=== PATIENT | female | born 1955 | race Caucasian/White ===

== ENCOUNTER 2020-05-15 15:48 | Inpatient (IN) | payer OTHER, SELFPAY ==
[~2020-05-15] VITALS: Ht 154.9 cm; Wt 80.7 kg
--- NOTE | 2020-05-15 15:49 | NUR ---
PATIENT BIBA BLS TAKEN TO BED 12
[2020-05-15 15:50] VITALS: BP 102/61
[2020-05-15] MEDS ORDERED: MORPHINE SULFATE 2 MG/ML SYR IM ONE (16:00)
--- NOTE | 2020-05-15 16:00 | NUR ---
PT BIBA FROM HOME C/O RIGHT ANKLE PAIN W/ EDEMA AND SLIGHT DEFORMITY S/P FALL IN HER BATHROOM. PT STATES SHE FELT DIZZY, LOST HER BALANCE, AND FELL. OTHERWISE, DENIES FEVER, COUGH, SOB, CHEST PAIN, N/V/D, OR SICK CONTACT. PT DENIES DIZZINESS AT THIS MOMENT. PT DENIES HEAD INJURY OR LOC. DENIES PMH.
--- NOTE | 2020-05-15 16:34 | NUR ---
X-Ray at bedside.
[2020-05-15] MEDS ORDERED: LIDOCAINE 2% 1000 MG/50 ML VIAL INJ ONE (16:40)
--- NOTE | 2020-05-15 18:06 | NUR ---
SPOKE TO PT'S SON VIA PHONE # [phone] FOR MEDICAL UPDATES.
--- NOTE | 2020-05-15 18:06 | NUR ---
Attempted instruction on proper crutch use, patient unable to safely return demonstration. Dr. Valenzuela made aware
--- NOTE | 2020-05-15 18:16 | NUR ---
CALLED PT'S SON VIA PHONE # [phone] FOR LETTING HIM KNOW HIS MOTHER WILL BE ADMITTED TO THE HOSPITAL WITHOUT NO ANSWER. LEFT MESSAGE FOR HIM TO CALL BACK.
[2020-05-15] MEDS ORDERED: NACL 0.9% 1,000 ML IV ONE (18:20)
[2020-05-15] MEDS ORDERED: ZOLPIDEM 5 MG TAB PO PRN (18:30)
[2020-05-15] MEDS ORDERED: MAGNESIUM OXIDE 400 MG TAB PO PRN (18:30)
[2020-05-15] MEDS ORDERED: KCL 20 MEQ/WATER INJ PREMIX 200 ML IV PRN (18:30)
[2020-05-15] MEDS ORDERED: MORPHINE SULFATE 4 MG/ML SYR IVP PRN (18:30)
[2020-05-15] MEDS ORDERED: MAG SULF 2000 MG/WATER PREMIX 50 ML IV PRN (18:30)
[2020-05-15] MEDS ORDERED: ONDANSETRON 4 MG/2 ML VIAL IVP PRN (18:30)
[2020-05-15] MEDS ORDERED: IBUPROFEN 400 MG TAB PO PRN (18:30)
[2020-05-15] MEDS ORDERED: ACETAMINOPHEN 325 MG TAB PO PRN (18:30)
[2020-05-15] MEDS ORDERED: POTASSIUM CHLORIDE 10 MEQ TABER PO PRN (18:30)
--- NOTE | 2020-05-15 18:45 | NUR ---
PT HAS BEEN TAKING TO CT VIA [facility].
[2020-05-15] MEDS: NACL 0.9% 1,000 ML IV SCH (19:00)
--- NOTE | 2020-05-15 19:30 | NUR ---
RECEIVED REPORT FROM JAN PAL FOR CONTINUITY OF CARE.
[2020-05-15 19:38] LABS: BASOPHILS % (AUTO) 0.2 % (0.0-2.0); EOSINOPHILS % (AUTO) 0.1 % (0.0-4.0); HEMATOCRIT 42.9 % (36-48); HEMOGLOBIN 14.3 g/dL (12.0-16.0); LYMPHOCYTES # (AUTO) 1.1 K/uL (2.5-16.5); LYMPHOCYTES % (AUTO) 7.4 % (20.5-51.1); MEAN CORPUSCULAR HEMOGLOBIN 32 pg (27-31); MEAN CORPUSCULAR HGB CONC 33 g/dL (33-37); MEAN CORPUSCULAR VOLUME 96.7 fL (80-94); MONOCYTES # (AUTO) 0.5 K/uL (0.8-1.0); MONOCYTES % (AUTO) 3.2 % (1.7-9.3); NEUTROPHILS # (AUTO) 13.5 K/uL (1.8-7.7); NEUTROPHILS % (AUTO) 89.1 % (42.2-75.2); PLATELET COUNT (AUTO) 219 K/uL (140-450); RED BLOOD CELL COUNT(AUTO) 4.43 MIL/uL (4.20-5.40); RED CELL DISTRIBUTION WIDTH 15.3 % (11.6-13.7); WHITE BLOOD COUNT (AUTO) 15.1 K/uL (4.8-10.8)
[2020-05-15 19:41] LABS: CARBON DIOXIDE 24.2 mmol/L (21-32)
[2020-05-15 19:53] LABS: ALBUMIN 4.3 g/dL (3.4-5.0); CREATININE 1.5 mg/dL (0.6-1.3); TOTAL BILIRUBIN 0.4 mg/dL (0.0-1.0)
[2020-05-15 19:56] LABS: PROTHROMBIN TIME 10.4 secs (10.8-13.4)
[2020-05-15 19:57] LABS: ANION GAP 21.8 (8-16)
--- NOTE | 2020-05-15 20:00 | NUR ---
PT LAYING IN BED COMFORTABLE IN SEMI FOWLERS POSITION IN NO ACUTE DISTRESS NOTED. BREATHING EVEN AND UNLABORED EVIDENCE BY RISE AND FALL OF CHEST WALL. BED LOCKED AND IN LOWEST POSITION. IVF OF 0.9% RUNNING AT THIS TIME. ALL NEEDS MEET PRIOR TO EXIT. WILL CONITINUE TO MONITOR.
--- NOTE | 2020-05-15 22:54 | NUR ---
PT LAYING IN BED COMFORTABLE IN SEMI FOWLERS POSITION IN NO ACUTE DISTRESS NOTED. BREATHING EVEN AND UNLABORED EVIDENCE BY RISE AND FALL OF CHEST WALL. BED LOCKED AND IN LOWEST POSITION. ALL NEEDS MEET PRIOR TO EXIT. WILL CONITINUE TO MONITOR.
--- NOTE | 2020-05-15 23:25 | NUR ---
RECEIVED PHONE CALL PER [facility] THAT THEY REQUIRE VERIFICATION FOR MOTRIN DUE TO PT'S ALLERGY TO ASPIRIN. PAGED FOR DR. DÍAZ AT [phone] PER [employer] SQL DEVELOPER THEY WILL PAGE DOC.
--- NOTE | 2020-05-15 23:28 | NUR ---
PER DR. VAZQUEZ TO KEEP R ANKLE ELEVATED ABOVE THE LEVEL OF THE HEART FOR SURGERY. WILL ELEVATED LEG INSTRUCTED AND WILL ENDORSE INSTRUCTIONS TO AM NURSE.
--- NOTE | 2020-05-15 23:33 | NUR ---
RECEIVED PHONE CALL FROM DR. DÍAZ AND STATES "YES MOTRIN IS OKAY AT THIS TIME". NOTIFIED [facility] & SPOKE WITH MAURA.
--- NOTE | 2020-05-16 00:34 | NUR ---
ELEVATED PT'S EXTREMITY TOLERATED WELL. NO C/O PAIN OR DISCOMFORT AT THIS TIME WILL CONTINUE TO MONITOR.
[2020-05-16] MEDS: HYDROcodone/APAP 5/325 MG 1 TAB TAB PO PRN (01:28)
--- NOTE | 2020-05-16 01:29 | NUR ---
PT C/O PAIN & DISCOMFORT TO R ANKLE THROMBBING 09/29. PT WAS GIVEN NORCO FOR PAIN WILL CONTINUE TO MONITOR FOR EFFECTIVENESS OF PAIN RELIEF.
--- NOTE | 2020-05-16 02:30 | NUR ---
PT VERBALIZES A DECREASE IN PAIN LEVEL FROM 5/10 TO 0/10. SHE IS LAYING IN BED IN NO ACUTE DISTRESS NOTED. BREATHING EVEN AND UNLABORED EVIDENCE BY RISE AND FALL OF CHEST WALL. CALL LIGHT WITHIN REACH AND ALL NEEDS MEET PRIOR TO EXIT.
[2020-05-16] MEDS ORDERED: ATEN100T6 PO (03:32)
[2020-05-16] MEDS ORDERED: ORE25 PO (03:32)
[2020-05-16] MEDS ORDERED: BENA40TA PO (03:32)
[2020-05-16] MEDS ORDERED: SUL500 PO (03:32)
--- NOTE | 2020-05-16 04:34 | NUR ---
Patient will be admitted to care of DR. DÍAZ. Admited to MED/SURG. Will go to room 126A. Belongings list completed. Report to GIVEN TO KEERTHI PAL. ALL COVID PRECAUTIONS IN PLACE. PT WEARING A MASK. PT TAKEN VIA GURNEY BY RHONDA GUALLPA. PT LEFT WITH STABLE VSS.
[2020-05-16 04:55] VITALS: BP 136/78
--- NOTE | 2020-05-16 04:55 | NUR ---
RECEIVED PT AAOX4 / PRACHI FROM ER , IV SITE INTACT AND PATENT . ADMISSION ASSESSMENT - DONE . W/ BANDAGE DRESSING ON R FOOT EXTENDED TO LEG - WILL ELEVATE THE EFFECTED FOOT ORDERED . NPO - RE INSTRUCTED . SAFETY MEASURES IN PLACE - CALL LIGHT WITHIN REACH . POC DISCUSSED AND VERBALIZE UNDERSTANDING . WILL CONT. TO MONITOR
[2020-05-16] MEDS: NACL 0.9% 1,000 ML IV SCH ×2 (05:26→20:59)
--- NOTE | 2020-05-16 06:00 | NUR ---
MADE ROUNDS , NO COMPLAIN MADE AT THIS TIME . CALL LIGHT WITHIN REACH
--- NOTE | 2020-05-16 06:20 | NUR ---
PATIENT HAS BEEN SCREENED AND CATEGORIZED LOW NUTRITION RISK. PATIENT WILL BE SEEN WITHIN 7 DAYS OF ADMISSION. 05/23/19 ТАТЬЯНА SALEH MS, RDN Addendum: 05/16/20 at [address] Incorrect year previously entered; correction: PATIENT HAS BEEN SCREENED AND CATEGORIZED LOW NUTRITION RISK. PATIENT WILL BE SEEN WITHIN 7 DAYS OF ADMISSION. 05/23/20 ТАТЬЯНА SALEH MS, RDN
--- NOTE | 2020-05-16 07:53 | NUR ---
ENDORSE TO AM SHIFT - PT - STABLE - ENDORSE PT IS FOR OR TODAY AT 13OO , HAVE TO SIGN THE CONSENT NO CONSENT YET FOR OR. I ENDORSE TO AM SHIFT PT . HAS ONGOING FIRST BAG OF [place] PALMER . PT IS NPO
--- NOTE | 2020-05-16 07:53 | NUR ---
RECEIVED PATIENT IN BED RESTING COMFORTABLY, PRESENTS CALM AND COOPERATIVE, ABLE TO EXPRESS NEEDS. NO C/O PAIN OR DISCOMFORT. RESPIRATIONS NON-LABORED. SKIN IS CLEAN, WARM AND DRY TO TOUCH. IV ACCESS IS PATENT DRY AND INTACT. BED IS LOCKED IN LOWEST POSITION, CALL LIGHT IN REACH. NURSE WILL CONTINUE TO MONITOR FOR CHANGES IN STATUS.
[2020-05-16] MEDS: DOCUSATE SODIUM 100 MG GELCAP PO SCH (09:24)
[2020-05-16 09:47] LABS: BASOPHILS % (AUTO) 0.4 % (0.0-2.0); EOSINOPHILS % (AUTO) 0.3 % (0.0-4.0); HEMATOCRIT 37.4 % (36-48); HEMOGLOBIN 12.6 g/dL (12.0-16.0); LYMPHOCYTES # (AUTO) 1.9 K/uL (2.5-16.5); LYMPHOCYTES % (AUTO) 17.5 % (20.5-51.1); MEAN CORPUSCULAR HEMOGLOBIN 32 pg (27-31); MEAN CORPUSCULAR HGB CONC 34 g/dL (33-37); MEAN CORPUSCULAR VOLUME 95.6 fL (80-94); MONOCYTES # (AUTO) 0.9 K/uL (0.8-1.0); MONOCYTES % (AUTO) 8.4 % (1.7-9.3); NEUTROPHILS # (AUTO) 7.9 K/uL (1.8-7.7); NEUTROPHILS % (AUTO) 73.4 % (42.2-75.2); PLATELET COUNT (AUTO) 207 K/uL (140-450); RED BLOOD CELL COUNT(AUTO) 3.91 MIL/uL (4.20-5.40); RED CELL DISTRIBUTION WIDTH 15.4 % (11.6-13.7); WHITE BLOOD COUNT (AUTO) 10.8 K/uL (4.8-10.8)
[2020-05-16 10:09] LABS: ANION GAP 17.8 (8-16); CARBON DIOXIDE 27.8 mmol/L (21-32); CREATININE 1.1 mg/dL (0.6-1.3); POTASSIUM 3.6 mmol/L (3.5-5.1)
--- NOTE | 2020-05-16 11:54 | NUR ---
PATIENT RESTING COMFORTABLY, NO C/O PAIN OR DISCOMFORT. RESPIRATIONS ARE NON-LABORED. SKIN IS CLEAN, WARM AND DRY TO TOUCH. IV ACCESS IS PATENT, DRY AND INTACT. BED IS LOCKED IN LOWEST POSITION, CALL LIGHT IN REACH. NURSE WILL CONTINUE TO MONITOR FOR CHANGE IN STATUS. CONSENT FOR PROCEDURE OBTAINED, PLACED IN CHART.
--- NOTE | 2020-05-16 13:58 | NUR ---
PATIENT OFF UNIT FOR PROCEDURE.
[2020-05-16] MEDS ORDERED: SEVOFLURANE 250 ML BTL INH ONE (14:30)
[2020-05-16] MEDS ORDERED: MIDAZOLAM 2 MG/2 ML VIAL ONE (14:30)
[2020-05-16] MEDS ORDERED: ONDANSETRON 4 MG/2 ML VIAL ONE (14:30)
[2020-05-16] MEDS ORDERED: PROPOFOL 200 MG/20 ML VIAL IV ONE (14:30)
[2020-05-16] MEDS ORDERED: fentaNYL citrate 0.05 MG/ML VIAL ONE (14:30)
[2020-05-16] MEDS ORDERED: DEXAMETHASONE 4 MG/ML VIAL ONE (14:30)
[2020-05-16] MEDS ORDERED: LABETALOL 100 MG/20 ML VIAL ONE (14:30)
[2020-05-16] MEDS ORDERED: BUPIVACAINE-MPF/EPI 0.25% 10 ML VIAL INJ ONE (15:13)
[2020-05-16] MEDS ORDERED: HYDROmorphone 1 MG/ML AMP IVP PRN (17:55)
[2020-05-16] MEDS ORDERED: diphenhydrAMINE 50 MG/ML VIAL IVP PRN (17:55)
[2020-05-16] MEDS: LACTATED RINGERS 1,000 ML IV SCH ×2 (17:55→19:51)
[2020-05-16] MEDS ORDERED: MEPERIDINE 25 MG/ML SYR IVP PRN (17:55)
[2020-05-16] MEDS ORDERED: ONDANSETRON 4 MG/2 ML VIAL IVP PRN (17:55)
--- NOTE | 2020-05-16 19:13 | NUR ---
patient returned from procedure. Patient resting comfortably, no c/o pain or discomfort. Respirations non-labored, skin is clean, warm and dry to touch. Iv access is patent, dry and intact. Bed is locked in lowest position, call light in reach. Patient endorsed to hotel night auditor nurse
[2020-05-16 19:15] VITALS: BP 144/79
--- NOTE | 2020-05-16 19:17 | NUR ---
patient procedural extremity elevated with good circulation and good sensation. no c/o pain or discomfort. nurse endorsed to information resource consultant nurse to monitor for changes in status.
[2020-05-16 20:03] VITALS: BP 135/82
[2020-05-16] MEDS ORDERED: ceFAZolin 1,000 MG VIAL ONE (22:41)
--- NOTE | 2020-05-17 | NUR ---
EZEKIEL MOTLEY ,. LEG ELEVATED - NID - 02 SAT WNL . CIRCULATORY ASSESSMENT AND NEURO ASSESSMENT OF POST OPERATED FOOT - DONE .I TOLD TO HTE PT . ONCE SHE FEEL ANY THING DOES NOT RIGHT TO HER POST OPERATED FOOT - LET ME KNOW - WILL ENDORSE
--- NOTE | 2020-05-17 02:00 | NUR ---
SHE SAID THE BANDAGE WRAPPED AROIUND - POST FOOT OPERATED SHE NOT TOO HEAVY NOT TOO PAIN
[2020-05-17] MEDS: LACTATED RINGERS 1,000 ML IV SCH ×3 (02:15→18:55)
[2020-05-17] MEDS: HYDROcodone/APAP 5/325 MG 1 TAB TAB PO PRN ×2 (02:56→08:11)
[2020-05-17 04:00] VITALS: BP 135/89
--- NOTE | 2020-05-17 04:00 | NUR ---
NID - O2 SAT WNL . - FOOT OPERATED LEGS I APPLY LIGHT TOUCH SHE SAID SHE FEELS IT . BNO ASHEN BLUE OR ANY CYANOSIS NOTED ON OPERATED FOOT
[2020-05-17] MEDS ORDERED: ceFAZolin 1,000 MG VIAL ONE ×3 (05:35→05:40)
--- NOTE | 2020-05-17 06:00 | NUR ---
NO COMPLAIN MADE - VOIDED FREELY / BEDPAN
[2020-05-17 06:55] LABS: BASOPHILS % (AUTO) 0.2 % (0.0-2.0); EOSINOPHILS % (AUTO) 0.3 % (0.0-4.0); HEMATOCRIT 31.4 % (36-48); HEMOGLOBIN 10.4 g/dL (12.0-16.0); LYMPHOCYTES # (AUTO) 1.7 K/uL (2.5-16.5); LYMPHOCYTES % (AUTO) 14.7 % (20.5-51.1); MEAN CORPUSCULAR HEMOGLOBIN 32 pg (27-31); MEAN CORPUSCULAR HGB CONC 33 g/dL (33-37); MONOCYTES # (AUTO) 1.2 K/uL (0.8-1.0); MONOCYTES % (AUTO) 10.3 % (1.7-9.3); NEUTROPHILS # (AUTO) 8.8 K/uL (1.8-7.7); NEUTROPHILS % (AUTO) 74.5 % (42.2-75.2); PLATELET COUNT (AUTO) 160 K/uL (140-450); RED BLOOD CELL COUNT(AUTO) 3.21 MIL/uL (4.20-5.40); RED CELL DISTRIBUTION WIDTH 15.4 % (11.6-13.7); WHITE BLOOD COUNT (AUTO) 11.8 K/uL (4.8-10.8)
[2020-05-17 07:36] LABS: ANION GAP 13.3 (8-16); CARBON DIOXIDE 26.1 mmol/L (21-32); CREATININE 1.1 mg/dL (0.6-1.3); POTASSIUM 3.4 mmol/L (3.5-5.1)
--- NOTE | 2020-05-17 07:42 | NUR ---
ENDORSE - PT - STABLE
[2020-05-17 08:00] VITALS: BP 122/75
[2020-05-17] MEDS: DOCUSATE SODIUM 100 MG GELCAP PO SCH (08:11)
--- NOTE | 2020-05-17 08:14 | NUR ---
ADMINISTERED SCHEDULED MEDICATION AND NORCO FOR PAIN 6/10 THROBBING PAIN, MEDICATION EDUCATION PROVIDED. PT VERBALIZED UNDERSTANDING, PT TOLERATED WELL. PT IS STABLE, WILL CONTINUE TO MONITOR.
[2020-05-17] MEDS: NACL 0.9% 1,000 ML IV SCH ×2 (08:15→21:21)
[2020-05-17] MEDS ORDERED: ERGOCALCIFEROL 50,000 IU SGL PO SCH (09:00)
--- NOTE | 2020-05-17 14:07 | NUR ---
ADMINISTERED SCHEDULED MEDICATION, MEDICATION EDUCATION PROVIDED. PT TOLERATED WELL. PT IS STABLE, WILL CONTINUE TO MONITOR
[2020-05-17 16:00] VITALS: BP 121/76
--- NOTE | 2020-05-17 21:00 | NUR ---
C/O PAIN - WILL MEDICATE
--- NOTE | 2020-05-18 | NUR ---
MADE ROUNDS , NO S/SX OF ACUTE DISTRESS
[2020-05-18] MEDS: LACTATED RINGERS 1,000 ML IV SCH ×2 (03:15→11:35)
[2020-05-18 04:00] VITALS: BP 133/60
--- NOTE | 2020-05-18 04:00 | NUR ---
O2 SAT WNL . NO S/SX OF ACUTE DISTRESS
[2020-05-18 06:51] LABS: BASOPHILS # (AUTO) 0.1 K/uL (0.00-0.22); BASOPHILS % (AUTO) 0.5 % (0.0-2.0); EOSINOPHILS # (AUTO) 0.1 K/uL (0-0.4); EOSINOPHILS % (AUTO) 0.9 % (0.0-4.0); HEMATOCRIT 30.6 % (36-48); HEMOGLOBIN 10.3 g/dL (12.0-16.0); LYMPHOCYTES # (AUTO) 1.7 K/uL (2.5-16.5); LYMPHOCYTES % (AUTO) 14.4 % (20.5-51.1); MEAN CORPUSCULAR HEMOGLOBIN 33 pg (27-31); MEAN CORPUSCULAR HGB CONC 34 g/dL (33-37); MEAN CORPUSCULAR VOLUME 96.6 fL (80-94); MONOCYTES # (AUTO) 1.1 K/uL (0.8-1.0); MONOCYTES % (AUTO) 8.7 % (1.7-9.3); NEUTROPHILS # (AUTO) 9.2 K/uL (1.8-7.7); NEUTROPHILS % (AUTO) 75.5 % (42.2-75.2); PLATELET COUNT (AUTO) 155 K/uL (140-450); RED BLOOD CELL COUNT(AUTO) 3.17 MIL/uL (4.20-5.40); RED CELL DISTRIBUTION WIDTH 15.2 % (11.6-13.7); WHITE BLOOD COUNT (AUTO) 12.1 K/uL (4.8-10.8)
[2020-05-18 07:14] LABS: ANION GAP 14.3 (8-16); CARBON DIOXIDE 28.4 mmol/L (21-32); CREATININE 0.8 mg/dL (0.6-1.3); POTASSIUM 3.7 mmol/L (3.5-5.1)
--- NOTE | 2020-05-18 07:30 | NUR ---
RECEIVED REPORT FROM NIGHT NURSE FOR CONTINUITY OF CARE. PT IS STABLE, PT ASLEEP. PT HAS RH 22G SALINE LOCH AND LH24G INFUSING NS AT 80ML/H. SAFETY MEASURES IN PLACE, WILL CONTINUE TO MONITOR.
--- NOTE | 2020-05-18 07:30 | NUR ---
ENDORSE - PT - STABLE
[2020-05-18 08:00] VITALS: BP 137/79
[2020-05-18] MEDS ORDERED: hydroCHLOROthiazide 25 MG TAB PO SCH (09:00)
[2020-05-18] MEDS ORDERED: atenoloL 50 MG TAB PO SCH (09:00)
[2020-05-18] MEDS ORDERED: BENAZEPRIL 20 MG TAB PO SCH (09:00)
[2020-05-18] MEDS: DOCUSATE SODIUM 100 MG GELCAP PO SCH (09:17)
[2020-05-18] MEDS: NACL 0.9% 1,000 ML IV SCH (09:19)
--- NOTE | 2020-05-18 09:24 | NUR ---
ADMINISTERED SCHEDULED MEDICATION, MEDICATION EDUCATION PROVIDED. PT TOLERATED WELL. PT IS STABLE, WILL CONTINUE TO MONITOR.
--- NOTE | 2020-05-18 10:19 | NUR ---
DISCHARGE PLANNING: RECEIVED AN ORDER FOR SNF VS H/H FOR PT. MET WITH THE PATIENT AT THE BEDSIDE TO DISCUSS DC PLAN AND PREFERS TO GO TO A SNF. SHE STATED SHE LIVES WITH HER SON BUT HER SON GOES TO WORK AND STAYS AT HOME BY HERSELF. SHE STATED SHE'D RATHER GO TO PRISON TO GET MORE REHAB AND TO BE ABLE TO GET BACK ON HER FEET. REFERRAL AND ORDER SENT TO [facility] AND [facility] [place] [facility]. PER TANIA, SHE WILL FORWARD THE REFERRAL TO THEIR DON. WILL FOLLOW UP. Addendum: 05/18/20 at 1200 by Mariangel Anand CM PER TANIA OF [facility] [place] [facility], THEY ARE ABLE TO ACCEPT PENDING PCR RESULTS. I ASKED IF THAT IS A NEW REQUIREMENT FOR NEW PATIENTS SINCE WE HAD SEND PATIENT'S TO THEM WITH JUST AN ANTIGEN AND THEY WERE ABLE TO ACCEPT. SHE STATED SHE WILL REACH OUT TO THEIR DON AND WILL GIVE ME A CALL BACK. DR. VIVAS MADE AWARE. Addendum: 05/18/20 at 1227 by Mariangel Anand CM PER [facility] NO NEED TO SWAB PATIENT FOR PCR, SHE CONFIRMED IT WITH THEIR ENVIRONMENTAL DEPARTMENT MANAGER. CHARGE NURSE MADE AWARE. ONCE PATIENT IS READY TO DC, PATIENT CAN GO TO ROOM 44B UNDER DR. TAYLOR. CONTACTED LORRI OF [facility], NO ANSWER. LEFT MESSAGE. WILL FOLLOW UP. DR. VIVAS MADE AWARE. WILL DC TODAY. Addendum: 05/18/20 at 1321 by Mariangel Anand CM CONTACTED LORRI AGAIN OF [facility], NO ANSWER. LEFT MESSAGE. WILL FOLLOW UP.
[2020-05-18] MEDS ORDERED: ACET-9525 PO (13:45)
[2020-05-18] MEDS ORDERED: ACET-1182 PO (13:45)
--- NOTE | 2020-05-18 15:12 | NUR ---
CALLED [facility] AND GAVE REPORT TO JEROME REID IS DUE TO BE PICKED UP AT 1600. DR TAYLOR WILL BE ACCEPTING DR. PT IS GOING TO ROOM 44B
[2020-05-18 16:00] VITALS: BP 121/92
--- NOTE | 2020-05-18 16:00 | NUR ---
PROVIDED PT WITH HELP WITH BEDPAN, PT CLEANED, PT IS STABLE, WILL CONTINUE TO MONITOR
--- NOTE | 2020-05-18 18:53 | NUR ---
PT DISCHARGED TO [facility]. PROVIDED DISCHARGE INSTRUCTIONS, PT VERBALIZED UNDERSTANDING, PT STABLE. FLU AND PNA UP TO DATE.
== END 2020-05-18 18:55 | DRG 313 ==
LOC: MED 15:48 → MTU 18:36 → MMU 05-16 04:14
PROVIDERS: ADMIT Hospitalist; ATTEND Hospitalist
PROC: 0QSG04Z Reposition Right Tibia with Internal Fixation Device, Open Approach (ICD-10-PCS; 2020-05-16)
PROC: 0SBF0ZZ Excision of Right Ankle Joint, Open Approach (ICD-10-PCS; 2020-05-16)
PROC: 0QSJ04Z Reposition Right Fibula with Internal Fixation Device, Open Approach (ICD-10-PCS; 2020-05-16)
PROC: 0QSG04Z Reposition Right Tibia with Internal Fixation Device, Open Approach (ICD-10-PCS; principal; 2020-05-16 13:00)
DX: S82.871A Displaced pilon fracture of right tibia, initial encounter for closed fracture (principal); S82.491A Other fracture of shaft of right fibula, initial encounter for closed fracture; W18.39XA Other fall on same level, initial encounter; Y93.89 Activity, other specified; Y92.89 Other specified places as the place of occurrence of the external cause; Y99.8 Other external cause status; S91.001A Unspecified open wound, right ankle, initial encounter; Z20.828 Contact with and (suspected) exposure to other viral communicable diseases; Z88.5 Allergy status to narcotic agent; S83.31XA Tear of articular cartilage of right knee, current, initial encounter
CPT/HCPCS: 27810; 36415; 71045; 73610; 73700; 80048; 80053; 85025; 85610; 85730; 87081; 93005; 96372; 99285; C1713; J0690; J1100; J1644; J2001; J2250; J2270; J2405; J2704; J3010; J3480; J3490; J7060